=== PATIENT | male | born 1970 | race Caucasian/White ===

== ENCOUNTER → 2016-10-16 | Outpatient (CLI) | payer OTHER ==
--- NOTE | 2016-10-16 17:17 | CT ---
High resolution CT of the chest without contrast at 1220 hour History: Rule out underlying interstitial lung disease. Restrictive lung disease (J 98.4) Technique: Thin slice axial imaging was obtained at 10 mm intervals through the chest in supine posit ion during inspiration and expiration. Prone imaging was also obtained through the lung bases. Spiral imaging was then obtained through the chest with images reconstructed in multiple planes. Dose reduc tion techniques were utilized. Findings: On the high resolution images the lungs are clear without interstitial disease, infiltrates , or significant pulmonary nodules. There is no evidence of hilar or mediastinal lymphadenopathy. The re is mild bronchial wall thickening. No endobronchial lesion is seen. There is no significant air tr apping seen on expiration views. There is mild elevation of the right hemidiaphragm. On the routine imaging through the chest, the lungs are clear. There are no pulmonary nodules seen. T here is no pericardial effusion. The heart and great vessels are normal in contour. The soft tissues about the chest demonstrate no significant abnormality. Limited evaluation of upper abdominal structu res to the level of the upper kidneys demonstrates no significant abnormalities. 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 Impression: 1. No significant interstitial lung disease is evident. 2. Mild elevation right hemidiaphragm. 3. Mild peribronchial thickening in the perihilar region bilaterally. Findings are nonspecific but ca n be seen with bronchitis, viral process, or reactive airways disease. 4. Incidental angiomyolipoma upper pole left kidney.
== END ==
LOC: FIMAGING 11:55
PROVIDERS: ATTEND Internal Medicine Pulmonary Disease
DX: J98.4 Other disorders of lung (principal); D30.02 Benign neoplasm of left kidney

== ENCOUNTER → 2017-05-17 | Outpatient (CLI) | payer OTHER | LOC: FIMAGING 18:11 | PROVIDERS: ATTEND Family Medicine | DX: M75.51 Bursitis of right shoulder (principal) ==